=== PATIENT | male | born 1950 | race Caucasian/White ===

== ENCOUNTER → 2020-10-18 11:34 | Outpatient (CLI) | payer OTHER, SELFPAY ==
[2020-10-18 15:09] LABS: COVID19 -Nasal RAPID Negative (Negative)
== END ==
PROVIDERS: PCP Family Medicine; Referring Provider Internal Medicine Gastroenterology; Visit Provider Physician Assistant
DX: Z01.812 Encounter for preprocedural laboratory examination (principal); Z20.822 Contact with and (suspected) exposure to COVID-19
CPT/HCPCS: 87635

== ENCOUNTER 2020-10-20 09:38 | Day surgery (SDC) | payer OTHER, SELFPAY ==
--- NOTE | 2020-10-20 | PATH_ITS ---
[facility] Accession Number: [id number] . 01 Material submitted: . colon - TRANSVERSE COLON POLYP . 02 Diagnosis: Transverse Colon Polyp, Biopsy: Hyperplastic polyp. MRV 10/25/2020 1113 Local . 02 Electronically signed: . Gilles Allan MD, PhD, Pathologist NPI- [id number] . 01 Gross description: . TRANSVERSE COLON POLYP: Received in formalin are 3 fragment(s) of gann, soft tissue measuring 0.3 x 0.2 x 0.2 cm to 0.3 x 0.2 x 0.1 cm submitted entirely in 1 cassette(s) /RANJANA 10/21/2020 0905 Local . 02 Pathologist provided ICD-10: D12.3 . 02 CPT . 000551 Performed at: 01 [facility] [address] [place] [address], [place], [place] [id number] MD Merrick Soto MD Phone: [phone] Performed at: [address] [facility] [address] [place], [place] [id number] MD Bharti Rashid MD Phone: [phone]
[2020-10-20 10:07] VITALS: BP 121/69; PULSE 55; RESP 14; TEMP 36.1; O2SAT 100; BMI 22.3
[2020-10-20] MEDS: SODIUM CHLORIDE 0.9% 1,000 ML 84 ML IV (10:24)
--- NOTE | 2020-10-20 11:17 | PM.HP.1 ---
History of Present Illness History of Present Illness Date Patient Seen: 10/20/20 Chief complaint: SDC Narrative: History of colon polyps Patient History Medical History (Updated 10/19/20 @ 14:56 by Marleni Pena RN) External hemorrhoids Helicobacter pylori gastritis Hiatal hernia Hyperplastic colon polyp (~2015) Internal hemorrhoids Raynauds syndrome Sigmoid diverticulosis Family & Social History Social History: household members spouse Tobacco & Substance use: Smoking Status Never smoker alcohol intake frequency 0-2 drinks per day Substance Use Type does not use Meds Home Medications and Allergies Home Medications Medication Instructions Recorded Confirmed Type alendronate 70 mg PO WEEKLY 10/19/20 10/20/20 History carbidopa-levodopa See Rx Instructions .ROUTE .COMPLEX 10/19/20 10/20/20 History polyethylene glycol 3350 [Miralax] 17 g PO DAILY 10/19/20 10/20/20 History sennosides [Senna Laxative] 17.2 mg PO DAILY 10/19/20 10/20/20 History Allergies Allergy/AdvReac Type Severity Reaction Status Date / Time ampicillin Allergy Verified 10/20/20 10:18 Exam Vital Signs (past 8 hours): - 10/20/20 10:07 Temperature 97.0 F L Pulse Rate 55 L Respiratory Rate 14 Blood Pressure 121/69 Pulse Oximetry 100 Oxygen Delivery Method Room Air Narrative Exam Narrative: Oropharynx free of lesions Chest clear to auscultation percussion Cardiac exam reveals no S3 or murmur Assessment & Plan Assessment & Plan narrative: History of colon polyps. Need for follow-up colonoscopy. Risks, benefits, alternatives have been explained.
--- NOTE | 2020-10-20 11:18 | PM.OP.ENDO ---
Operative Date/Time/Diagnoses Date of procedure: 10/20/20 Pre-op diagnosis: See indication and findings Procedure & Clinicians Study performed: Colonoscopy Same procedure as scheduled: Yes Indications: History of colon polyps Surgeon: Hesham Harding Procedure Notes Procedure in detail: After informed consent was obtained patient was placed in left lateral decubitus position. The video colonoscope was placed in the rectum slowly advanced cecum. Preparation was good. On slow withdrawal mucosa was carefully examined. The scope was removed. The patient tolerated procedure well. Blood loss none Complications none Sedation Total sedation time 15 minutes Fentanyl 100 mg Versed 4 mg IV titration Findings 1. Scattered sigmoid diverticulosis 2. Otherwise negative colonoscopy to cecum Patient should have follow-up colonoscopy in 5 years
[2020-10-20] MEDS: fentaNYL 250 MCG/5 ML INJ IV (11:24)
[2020-10-20] MEDS: MIDAZOLAM 5 MG/5 ML VIAL IV (11:30)
[2020-10-20 11:44] VITALS: BP 84/50; PULSE 59; RESP 16; TEMP 36.6; O2SAT 97
[2020-10-20 11:49] VITALS: BP 86/46; PULSE 47; RESP 16; O2SAT 97
[2020-10-20 11:54] VITALS: BP 91/52; PULSE 62; RESP 16; O2SAT 98
[2020-10-20 12:07] VITALS: BP 100/62; PULSE 45; RESP 16; TEMP 36.7; O2SAT 100
== END 2020-10-20 12:24 | disposition home or self-care (01) ==
LOC: ENDO 09:40
PROVIDERS: PCP Family Medicine; Referring Provider Internal Medicine Gastroenterology; Visit Provider Internal Medicine Gastroenterology
PROC: 0DJD8ZZ Inspection of Lower Intestinal Tract, Via Natural or Artificial Opening Endoscopic (ICD-10-PCS; CPT 45378; principal; 2020-10-20 11:00)
DX: Z12.11 Encounter for screening for malignant neoplasm of colon (principal); Z86.010 Personal history of colon polyps; K57.30 Diverticulosis of large intestine without perforation or abscess without bleeding
CPT/HCPCS: 45378; J2250; J3010